=== PATIENT | male | born 1970 | race Caucasian/White ===

== ENCOUNTER 2024-10-09 12:43 | Outpatient (CLI) | payer OTHER, SELFPAY ==
--- NOTE | ~2024-10-09 | US_ITS ---
EXAMINATION: US renal BI DATE: 10/09/2024 13:19 INDICATION: Disorder of kidney TECHNIQUE: Multiple ultrasound grayscale images of the kidneys were obtained. COMPARISON: None. FINDINGS: The right kidney measures 10.3 x 5.0 x 4.7 cm. The left kidney measures 14.3 x 4.7 x 4.5 cm. The kidn eys demonstrate normal echogenicity. There is no hydronephrosis in either kidney. No stones identifi ed. The bladder is normal with bilateral ureteral jets visualized on color Doppler. IMPRESSION: 1. Normal kidneys without hydronephrosis. Reviewed, dictated and finalized at location A.
--- OUTSIDE RECORDS SUMMARY | 2024-10-09 14:07 | XMS_ITS | Data Portability ---
Author Organization [facility] RICKIESandeep Sacha Address [address] [place] [address] Care Team Providers Care Sem Manager Name Role Phone HATHAWAY TYREE Primary Care Provider [phone] Assessment Encounter Date Assessment Date Assessment LastModified by Organization Details LastModified Time 12/07/2022 12/07/2022 Pt is stable and doing well, remaining under care of insurance risk surveyor at [facility]. [email or web address] Not available 12/12/2022 14:04:43 08/17/2023 08/17/2023 Pt is stable. Workup will proceed as described below. [email or web address] Not available 08/21/2023 15:10:42 12/12/2023 12/12/2023 Pt is stable. [email or web address] Not available 12/17/2023 12:46:53 06/12/2024 06/12/2024 Treatment will proceed as below. [email or web address] Not available 06/14/2024 07:41:17 07/08/2024 07/08/2024 Open wound at right reed has healed well without signs of secondary infection. Not available 07/09/2024 22:28:33 Plan of Treatment Reminders Order Date Submit Date Provider Last Modified By Organization Details Last Modified Time Details Appointments None recorded. Lab HbA1c (hemoglob in A1c), blood 2023 024 [employer] [facility], [address] [place] [address], [address], 06:21:57 BNP (B-type natriuret ic peptide), serum or plasma 2023 024 [facility], [address] [facility], [address], [place], [address], 4 10:14:43 CMP, serum or plasma 2023 024 [facility], [address] [facility], [address], [place], [address], 4 06:21:56 CBC w/ auto diff 2023 024 [facility], [address] [facility], [address], [place], [address], 4 06:22:00 TSH, ultra-sen sitive, serum 2023 024 [facility], [facility], [address], [place], [address], 4 06:21:59 BNP (B-type natriuret ic peptide), serum or plasma 2023 024 [facility], [facility], [facility] [address], [place], [address], 4 15:13:10 PSA, total, serum or plasma 2023 024 [facility], [facility], [facility] [address], [place], [address], 4 06:22:37 CMP, serum or plasma 2023 024 [facility], [facility], [address], [place], [address], 4 20:11:04 CBC w/ auto diff 2023 024 [facility], [address] [facility], [address], [place], [address], 4 20:11:05 lipid panel, serum 2023 024 [facility], [facility], [facility] [address], [place], [address], 4 20:11:03 TSH, ultra-sen sitive, serum 2023 024 [facility], [address] [facility], [facility] [address], [place], [address], 4 06:22:37 HbA1c (hemoglob in A1c), blood 2022 023 [email or web address] In-Office Order, Internal Use Only DO Not Attach Compendium DO Not Attach Compendium, Do Not Delete/merge, [id number] 3 15:49:26 Referral None recorded. Procedures None recorded. Surgeries None recorded. Imaging US, gallbladd er 2023 024 [facility] (Radiology), [address] [facility] , [place], [address], 4 10:41:12 Medication Orders furosemid e 20 mg tablet 2023 024 [facility], [address] [place], [address], 4 22:25:43 potassium chloride ER 10 mEq tablet,ex tended release 2023 024 [facility], [address] [place], [address], 4 22:25:44 Bactrim DS 800 mg-160 mg tablet 2023 024 [facility], [address] [place], [address], 4 11:15:38 furosemid e 20 mg tablet 2023 024 [facility], [address] [place], [address], 4 16:35:59 potassium chloride ER 10 mEq tablet,ex tended release 2023 024 [facility], [address] [place], [address], 4 16:35:59 atorvasta tin 40 mg tablet 2023 024 [facility], [address] [place], [address], 4 16:35:59 amlodipin e 10 mg tablet 2023 024 [facility], [address] [place], [address], 4 16:36:02 chlorthal idone 25 mg tablet 2023 024 [facility], [address] [place], [address], 4 16:36:00 hydralazi ne 100 mg tablet 2023 024 [facility], [address] [place], [address], 4 16:36:00 labetalol 300 mg tablet 2023 024 [facility], [address] [place], [address], 4 16:36:00 isosorbid e dinitrate 20 mg tablet 2023 024 [facility], [address] [place], [address], 4 16:36:00 Chantix Continuin g Month Box 1 mg tablet 2023 024 [facility], [address] [place], [address], 4 16:35:55 Chantix Starting Month Box 0.5 mg (11)-1 mg (42) tablets in dose pack 2023 024 [email or web address], [address] [place], [address], 4 16:15:31 Chantix Continuin g Month Box 1 mg tablet 2023 024 [facility], [address] [place], [address], 4 17:43:39 furosemid e 20 mg tablet 2022 023 [facility], [address] [place] [address], [address], 3 15:40:14 potassium chloride ER 10 mEq tablet,ex tended release 2022 023 [facility], [address] [place] [address], [address], 3 15:40:22 Vitamin D2 1,250 mcg (50,000 unit) capsule 2022 023 [facility], [address] [place] [address], [address], 3 15:40:20 atorvasta tin 40 mg tablet 2022 023 [facility], [address] [place], [address], 3 15:40:21 amlodipin e 10 mg tablet 2022 023 [facility], [address] [place], [address], 3 15:40:10 chlorthal idone 25 mg tablet 2022 023 [facility], [address] [place] [address], [address], 15:40:12 hydralazi ne 100 mg tablet 2022 023 [facility], [address] [place], [address], 15:40:16 labetalol 300 mg tablet 2022 023 [facility], [address] [place], [address], 15:40:13 isosorbid e dinitrate 20 mg tablet 2022 023 [facility], [address] [place], [address], 15:40:14 Patient TargetsNo targets recorded. Patient Instructions Encounter Date Encounter Id Patient Instructions Last Modified By Organization Details Last Modified Time 08/17/2023 [id number] leg and ankle edema: care instructions [email or web address] Not available 08/17/2023 17:40:57 learning about high blood pressure [email or web address] Not available 08/17/2023 17:37:48 A healthy lifestyle: care instructions [email or web address] Not available 08/17/2023 17:37:48 12/12/2023 [id number] When You Want to Lose Weight: Care Instructions Not available 12/12/2023 16:28:11 learning about high blood pressure [email or web address] Not available 12/12/2023 16:28:11 07/08/2024 [id number] When You Want to Lose Weight: Care Instructions [email or web address] Not available 07/09/2024 22:29:07 Reason for Referral None Reported. Results Created Date Observation Date Name Description Value Unit Range Abnormal Flag Note LastModifiedBy Organization Detail LastModifiedTime 12/08/1912/07/2022 HbA1c (hemo globi n A1c), blood HbA1c 5.9 Not Available In-Office Order Internal Use Only DO Not Attach Compendium DO Not Attach Compendium, Do Not Delete/merge, [id number] 12/07/2022 15:00:44 08/22/19 24 08/22/2023 LIPID PANEL cholesterol, total 99 mg/dL 100-19 9 below low normal Not Available [facility] Department [address] [place] [address], [id number], 08/22/2023 20:11:03 08/22/19 24 08/22/2023 LIPID PANEL triglyceride s 122 mg/dL 0-149 Not Available [facility] Department [address] [place] [address], [address], 08/22/2023 20:11:03 08/22/19 24 08/22/2023 LIPID PANEL HDL cholesterol 30 mg/dL 40-999 below low normal Not Available [facility] Department [address] [place] [address], [address], 08/22/2023 20:11:03 08/22/19 24 08/22/2023 LIPID PANEL VLDL cholesterol brisa 24 mg/dL 5-40 Not Available [facility] Department [address] [place] [address], [address], 08/22/2023 20:11:03 08/22/19 24 08/22/2023 LIPID PANEL LDL chol calc (nih) 62 mg/dL 0-99 Not Available [facility] Department [address] [place], [address], 08/22/2023 20:11:03 08/22/19 24 08/22/2023 COMP. METAB OLIC PANEL (14) glucose 121 mg/dL 70-99 above high normal Not Available [facility] Department [address] [place], [address], 08/22/2023 20:11:04 08/22/19 24 08/22/2023 COMP. METAB OLIC PANEL (14) BUN 15 mg/dL 6-24 Not Available [facility] Department [address] [place], [address], 08/22/2023 20:11:04 08/22/19 24 08/22/2023 COMP. METAB OLIC PANEL (14) creatinine 1.37 mg/dL 0.76-1 .27 above high normal Not Available [facility] Department [address] [place] [address], [address], 08/22/2023 20:11:04 08/22/19 24 08/22/2023 COMP. METAB OLIC PANEL (14) eGFR 62 >=60 Units for eGFR value s are mL/mi n/1.7 3 The eGFR Calcu latio n has not been valid ated for patie nts under the age of 18. If test resul ts are displ ayed for a patie nt under the age of 18, disre diamond that value . Not Available [facility] Department [address] [place] [address], [address], 08/22/2023 20:11:04 08/22/19 24 08/22/2023 COMP. METAB OLIC PANEL (14) BUN/creatini ne ratio 11 9-20 Not Available [facility] Department [address] [place] [address], [address], 08/22/2023 20:11:04 08/22/19 24 08/22/2023 COMP. METAB OLIC PANEL (14) sodium 141 mmol/ L 134-14 4 Not Available [facility] Department [address] [place] [address], [address], 08/22/2023 20:11:04 08/22/19 24 08/22/2023 COMP. METAB OLIC PANEL (14) potassium 3.8 mmol/ L 3.5-5. 2 Not Available [facility] Department [address] [place] [address], [address], 08/22/2023 20:11:04 08/22/19 24 08/22/2023 COMP. METAB OLIC PANEL (14) chloride 99 mmol/ L 96-106 Not Available [facility] Department [address] [place] [address], [address], 08/22/2023 20:11:04 08/22/19 24 08/22/2023 COMP. METAB OLIC PANEL (14) carbon dioxide, total 28 mmol/ L Not Available [facility] Department [address] [place], [address], 08/22/2023 20:11:04 08/22/19 24 08/22/2023 COMP. METAB OLIC PANEL (14) calcium 10.0 mg/dL 8.7-10 .2 Not Available [facility] Department [address] [place], [address], 08/22/2023 20:11:04 08/22/19 24 08/22/2023 COMP. METAB OLIC PANEL (14) protein, total 6.2 g/dL 6.0-8. 5 Not Available [facility] Department [address] [place], [address], 08/22/2023 20:11:04 08/22/19 24 08/22/2023 COMP. METAB OLIC PANEL (14) albumin 4.2 g/dL 3.8-4. 9 Not Available [facility] Department [address] [place], [address], 08/22/2023 20:11:04 08/22/19 24 08/22/2023 COMP. METAB OLIC PANEL (14) globulin, total 2.0 g/dL 1.5-4. 5 Not Available [facility] Department [address] [place], [address], 08/22/2023 20:11:04 08/22/19 24 08/22/2023 COMP. METAB OLIC PANEL (14) A/G ratio 2.0 1.2-2. 2 Not Available [facility] Department [address] [place], [address], 08/22/2023 20:11:04 08/22/19 24 08/22/2023 COMP. METAB OLIC PANEL (14) bilirubin, total 0.7 mg/dL 0.0-1. 2 Not Available [facility] Department [address] [place], [address], 08/22/2023 20:11:04 08/22/19 24 08/22/2023 COMP. METAB OLIC PANEL (14) alkaline phosphatase 98 IU/L 44-121 Not Available [facility] Department [address] [place], [address], 08/22/2023 20:11:04 08/22/19 24 08/22/2023 COMP. METAB OLIC PANEL (14) AST (SGOT) 19 IU/L 0-40 Not Available [facility] Department [address] [place], [address], 08/22/2023 20:11:04 08/22/19 24 08/22/2023 COMP. METAB OLIC PANEL (14) ALT (SGPT) 23 IU/L 0-44 Not Available [facility] Department [address] [place], [address], 08/22/2023 20:11:04 08/22/19 24 08/22/2023 CBC WITH DIFFE RENTI AL/PL ATELE T WBC 7.3 x10e3 /uL 3.4-10 .8 Not Available [facility] Department [address] [place], [address], 08/22/2023 20:11:05 08/22/19 24 08/22/2023 CBC WITH DIFFE RENTI AL/PL ATELE T RBC 5.26 x10e6 /uL 4.14-5 .80 Not Available [facility] Department [address] [place], [address], 08/22/2023 20:11:05 08/22/19 24 08/22/2023 CBC WITH DIFFE RENTI AL/PL ATELE T hemoglobin 15.2 g/dL 13.0-1 7.7 Not Available [facility] Department [address] [place], [address], 08/22/2023 20:11:05 08/22/19 24 08/22/2023 CBC WITH DIFFE RENTI AL/PL ATELE T hematocrit 45.6 % 37.5-5 1.0 Not Available [facility] Department [address] [place], [address], 08/22/2023 20:11:05 08/22/19 24 08/22/2023 CBC WITH DIFFE RENTI AL/PL ATELE T MCV 87 fL 79-97 Not Available [facility] Department [address] [place], [address], 08/22/2023 20:11:05 08/22/19 24 08/22/2023 CBC WITH DIFFE RENTI AL/PL ATELE T MCH 28.9 pg 26.6-3 3.0 Not Available [facility] Department [address] [place] [address], [address], 08/22/2023 20:11:05 08/22/19 24 08/22/2023 CBC WITH DIFFE RENTI AL/PL ATELE T MCHC 33.3 g/dL 31.5-3 5.7 Not Available [facility] Department [address] [place], [address], 08/22/2023 20:11:05 08/22/19 24 08/22/2023 CBC WITH DIFFE RENTI AL/PL ATELE T RDW 14.4 % 11.5-1 4.5 Not Available [facility] Department [address] [place], [address], 08/22/2023 20:11:05 08/22/19 24 08/22/2023 CBC WITH DIFFE RENTI AL/PL ATELE T platelets 167 x10e3 /uL 150-45 0 Not Available [facility] Department [address] [place], [address], 08/22/2023 20:11:05 08/22/19 24 08/22/2023 CBC WITH DIFFE RENTI AL/PL ATELE T neutrophils 70 % notest b. Not Available [facility] Department [address] [place], [address], 08/22/2023 20:11:05 08/22/19 24 08/22/2023 CBC WITH DIFFE RENTI AL/PL ATELE T lymphs 21 % notest b. Not Available [facility] Department [address] [place], [address], 08/22/2023 20:11:05 08/22/19 24 08/22/2023 CBC WITH DIFFE RENTI AL/PL ATELE T monocytes 5 % notest b. Not Available [facility] Department [address] [place], [address], 08/22/2023 20:11:05 08/22/19 24 08/22/2023 CBC WITH DIFFE RENTI AL/PL ATELE T eos 3 % notest b. Not Available [facility] Department [address] [place], [address], 08/22/2023 20:11:05 08/22/19 24 08/22/2023 CBC WITH DIFFE RENTI AL/PL ATELE T basos 1 % notest b. Not Available [facility] Department [address] [place], [address], 08/22/2023 20:11:05 08/22/19 24 08/22/2023 CBC WITH DIFFE RENTI AL/PL ATELE T neutrophils (absolute) 5.1 x10e3 /uL 1.4-7. 0 Not Available [facility] Department [address] [place], [address], 08/22/2023 20:11:05 08/22/19 24 08/22/2023 CBC WITH DIFFE RENTI AL/PL ATELE T lymphs (absolute) 1.5 x10e3 /uL 0.7-3. 1 Not Available [facility] Department [address] [place], [address], 08/22/2023 20:11:05 08/22/19 24 08/22/2023 CBC WITH DIFFE RENTI AL/PL ATELE T monocytes(ab solute) 0.4 x10e3 /uL 0.1-0. 9 Not Available [facility] Department [address] [place], [address], 08/22/2023 20:11:05 08/22/19 24 08/22/2023 CBC WITH DIFFE RENTI AL/PL ATELE T eos (absolute) 0.2 x10e3 /uL 0.0-0. 4 Not Available [facility] Department [address] [place], [address], 08/22/2023 20:11:05 08/22/19 24 08/22/2023 CBC WITH DIFFE RENTI AL/PL ATELE T baso (absolute) 0.1 x10e3 /uL 0.0-0. 2 Not Available [facility] Department [address] [place], [address], 08/22/2023 20:11:05 08/22/19 24 08/22/2023 CBC WITH DIFFE RENTI AL/PL ATELE T immature granulocytes 0.1 % notest b. Not Available [facility] Department [address] [place], [address], 08/22/2023 20:11:05 08/22/19 24 08/22/2023 CBC WITH DIFFE RENTI AL/PL ATELE T immature grans (abs) 0.0 x10e3 /uL 0.0-0. 1 Not Available [facility] Department [address] [place], [address], 08/22/2023 20:11:05 08/22/19 24 08/22/2023 CBC WITH DIFFE RENTI AL/PL ATELE T NRBC 0 % 0-0 Not Available [facility] Department [address] [place], [address], 08/22/2023 20:11:05 08/22/19 24 08/23/2023 TSH TSH 3.620 uIU/m L 0.450- 4.500 Not Available [facility] ([facility]) [address] [facility], [place], [address], 08/23/2023 06:22:37 08/22/19 24 08/23/2023 PROST ATE-S PECIF IC AG prostate specific Ag 1.1 NG/mL 0.0-4. 0 [facility] ECLIA metho dolog y. Accor ding to the Ameri can Urolo gical Assoc iatio n, Serum PSA shoul d decre ase and remai n at undet ectab le level s after radic al prost atect ronen. The AUA defin es bioch emica l recur rence as an initi al PSA value 0.2 ng/mL or great er follo wed by a subse quent confi rmato ry PSA value 0.2 ng/mL or great er. Value s obtai chay with diffe rent assay metho ds or kits canno t be used inter wolf eably . Resul ts canno t be inter prete d as absol nikolai evide nce of the prese nce or absen ce of nehemiah pearson se. Not Available [facility] ([facility]) [address] [facility], [place], [address], 08/23/2023 06:22:37 08/22/19 24 08/23/2023 B-TYP E NATRI URETI C PEPTI DE B-type natriuretic peptide 150.9 pg/mL 0.0-10 0.0 above high normal Sieme ns [facility] metho dolog y Not Available [facility] ([facility]) [address] [facility], [place], [address], 08/23/2023 15:13:10 06/12/20 24 06/13/2024 COMP. METAB OLIC PANEL (14) glucose 139 mg/dL 70-99 above high normal Not Available [facility] ([facility]) [address] [facility], [place], [address], 06/13/2024 06:21:56 06/12/20 24 06/13/2024 COMP. METAB OLIC PANEL (14) BUN 14 mg/dL 6-24 Not Available [facility] ([facility]) [address] [facility], [place], [address], 06/13/2024 06:21:56 06/12/20 24 06/13/2024 COMP. METAB OLIC PANEL (14) creatinine 1.29 mg/dL 0.76-1 .27 above high normal Not Available [facility] ([facility]) [address] [facility], [place], [address], 06/13/2024 06:21:56 06/12/20 24 06/13/2024 COMP. METAB OLIC PANEL (14) eGFR 66 mL/mi n/1.7 3 >59 Not Available [facility] ([facility]) [address] [place], [address], 06/13/2024 06:21:56 06/12/20 24 06/13/2024 COMP. METAB OLIC PANEL (14) BUN/creatini ne ratio 11 -20 Not Available [facility] ([facility]) [address] [place], [address], 06/13/2024 06:21:56 06/12/20 24 06/13/2024 COMP. METAB OLIC PANEL (14) sodium 138 mmol/ L 134-14 4 Not Available [facility] ([facility]) [address] [place], [address], 06/13/2024 06:21:56 06/12/20 24 06/13/2024 COMP. METAB OLIC PANEL (14) potassium 3.8 mmol/ L 3.5-5. 2 Not Available [facility] ([facility]) [address] [place], [address], 06/13/2024 06:21:56 06/12/20 24 06/13/2024 COMP. METAB OLIC PANEL (14) chloride 99 mmol/ L 96-106 Not Available [facility] ([facility]) [address] [facility] [place], [address], 06/13/2024 06:21:56 06/12/20 24 06/13/2024 COMP. METAB OLIC PANEL (14) carbon dioxide, total 23 mmol/ L 20-29 Not Available [facility] ([facility]) [address] [facility] [place], [address], 06/13/2024 06:21:56 06/12/20 24 06/13/2024 COMP. METAB OLIC PANEL (14) calcium 9.7 mg/dL 8.7-10 .2 Not Available [facility] ([facility]) [address] [facility] [place], [address], 06/13/2024 06:21:56 06/12/20 24 06/13/2024 COMP. METAB OLIC PANEL (14) protein, total 6.1 g/dL 6.0-8. 5 Not Available [facility] ([facility]) [address] [facility] [place], [address], 06/13/2024 06:21:56 06/12/20 24 06/13/2024 COMP. METAB OLIC PANEL (14) albumin 4.0 g/dL 3.8-4. 9 Not Available [facility] ([facility]) [address] [facility] [place], [address], 06/13/2024 06:21:56 06/12/20 24 06/13/2024 COMP. METAB OLIC PANEL (14) globulin, total 2.1 g/dL 1.5-4. 5 Not Available [facility] ([facility]) [address] [facility] [place], [address], 06/13/2024 06:21:56 06/12/20 24 06/13/2024 COMP. METAB OLIC PANEL (14) bilirubin, total 0.7 mg/dL 0.0-1. 2 Not Available [facility] ([facility]) [address] [place], [address], 06/13/2024 06:21:56 06/12/20 24 06/13/2024 COMP. METAB OLIC PANEL (14) alkaline phosphatase 106 IU/L 44-121 Not Available [facility] ([facility]) [address] [place], [address], 06/13/2024 06:21:56 06/12/20 24 06/13/2024 COMP. METAB OLIC PANEL (14) AST (SGOT) 16 IU/L 0-40 Not Available [facility] ([facility]) [address] [place], [address], 06/13/2024 06:21:56 06/12/20 24 06/13/2024 COMP. METAB OLIC PANEL (14) ALT (SGPT) 21 IU/L 0-44 Not Available [facility] ([facility]) [address] [place], [address], 06/13/2024 06:21:56 06/12/20 24 06/12/2024 HEMOG LOBIN A1C hemoglobin A1C 6.2 % 4.8-5. 6 above high normal Predi abete s: 5.7 - 6.4 Diabe eitan: >6.4 Glyce baltazar contr ol for adult s with diabe eitan: <7.0 Not Available [facility] ([facility]) [address] [place], [address], 06/13/2024 06:21:57 06/12/20 24 06/13/2024 TSH TSH 4.420 uIU/m L 0.450- 4.500 Not Available [facility] ([facility]) [address] [place], [address], 06/13/2024 06:21:58 06/12/20 24 06/12/2024 CBC WITH DIFFE RENTI AL/PL ATELE T WBC 8.2 x10e3 /uL 3.4-10 .8 Eff ectiv e Decem [place]y 2023 [place] [id number] 5 WBC will be made* * non-o rdera ble as a stand -carmen e order code. Not Available [facility] ([facility]) [address] [place], [address], 06/13/2024 06:22:00 06/12/20 24 06/12/2024 CBC WITH DIFFE RENTI AL/PL ATELE T RBC 5.05 x10e6 /uL 4.14-5 .80 Not Available [facility] ([facility]) [address] [place], [address], 06/13/2024 06:22:00 06/12/20 24 06/12/2024 CBC WITH DIFFE RENTI AL/PL ATELE T hemoglobin 14.6 g/dL 13.0-1 7.7 Not Available [facility] ([facility]) [address] [place], [address], 06/13/2024 06:22:00 06/12/20 24 06/12/2024 CBC WITH DIFFE RENTI AL/PL ATELE T hematocrit 44.3 % 37.5-5 1.0 Not Available [facility] ([facility]) [address] [place], [address], 06/13/2024 06:22:00 06/12/20 24 06/12/2024 CBC WITH DIFFE RENTI AL/PL ATELE T MCV 88 fL 79-97 Not Available [facility] ([facility]) [address] [place], [address], 06/13/2024 06:22:00 06/12/20 24 06/12/2024 CBC WITH DIFFE RENTI AL/PL ATELE T MCH 28.9 pg 26.6-3 3.0 Not Available [facility] ([facility]) [address] [place], [address], 06/13/2024 06:22:00 06/12/20 24 06/12/2024 CBC WITH DIFFE RENTI AL/PL ATELE T MCHC 33.0 g/dL 31.5-3 5.7 Not Available [facility] ([facility]) [address] [facility], [place], [address], 06/13/2024 06:22:00 06/12/20 24 06/12/2024 CBC WITH DIFFE RENTI AL/PL ATELE T RDW 14.3 % 11.6-1 5.4 Not Available [facility] ([facility]) [address] [facility], [place], [address], 06/13/2024 06:22:00 06/12/20 24 06/12/2024 CBC WITH DIFFE RENTI AL/PL ATELE T platelets 179 x10e3 /uL 150-45 0 Not Available [facility] ([facility]) [address] [facility], [place], [address], 06/13/2024 06:22:00 06/12/20 24 06/12/2024 CBC WITH DIFFE RENTI AL/PL ATELE T neutrophils 74 % notest ab. Not Available [facility] ([facility]) [address] [facility], [place], [address], 06/13/2024 06:22:00 06/12/20 24 06/12/2024 CBC WITH DIFFE RENTI AL/PL ATELE T lymphs 15 % notest ab. Not Available [facility] ([facility]) [address] [facility], [place], [address], 06/13/2024 06:22:00 06/12/20 24 06/12/2024 CBC WITH DIFFE RENTI AL/PL ATELE T monocytes 7 % notest ab. Not Available [facility] ([facility]) [address] [facility], [place], [address], 06/13/2024 06:22:00 06/12/20 24 06/12/2024 CBC WITH DIFFE RENTI AL/PL ATELE T eos 3 % notest ab. Not Available [facility] ([facility]) [address] [place], [address], 06/13/2024 06:22:00 06/12/20 24 06/12/2024 CBC WITH DIFFE RENTI AL/PL ATELE T basos 1 % notest ab. Not Available [facility] ([facility]) [address] [place], [address], 06/13/2024 06:22:00 06/12/20 24 06/12/2024 CBC WITH DIFFE RENTI AL/PL ATELE T neutrophils (absolute) 6.1 x10e3 /uL 1.4-7. 0 Not Available [facility] ([facility]) [address] [place], [address], 06/13/2024 06:22:00 06/12/20 24 06/12/2024 CBC WITH DIFFE RENTI AL/PL ATELE T lymphs (absolute) 1.3 x10e3 /uL 0.7-3. 1 Not Available [facility] ([facility]) [address] [place], [address], 06/13/2024 06:22:00 06/12/20 24 06/12/2024 CBC WITH DIFFE RENTI AL/PL ATELE T monocytes(ab solute) 0.5 x10e3 /uL 0.1-0. 9 Not Available [facility] ([facility]) [address] [place], [address], 06/13/2024 06:22:00 06/12/20 24 06/12/2024 CBC WITH DIFFE RENTI AL/PL ATELE T eos (absolute) 0.3 x10e3 /uL 0.0-0. 4 Not Available [facility] ([facility]) [address] [place], [address], 06/13/2024 06:22:00 06/12/20 24 06/12/2024 CBC WITH DIFFE RENTI AL/PL ATELE T baso (absolute) 0.1 x10e3 /uL 0.0-0. 2 Not Available [facility] ([facility]) [address] [facility], [place], [address], 06/13/2024 06:22:00 06/12/20 24 06/12/2024 CBC WITH DIFFE RENTI AL/PL ATELE T immature granulocytes 0 % notest ab. Not Available [facility] ([facility]) [address] [facility], [place], [address], 06/13/2024 06:22:00 06/12/20 24 06/12/2024 CBC WITH DIFFE RENTI AL/PL ATELE T immature grans (abs) 0.0 x10e3 /uL 0.0-0. 1 Not Available [facility] ([facility]) [address] [facility], [place], [address], 06/13/2024 06:22:00 06/12/20 24 06/13/2024 B-TYP E NATRI URETI C PEPTI DE B-type natriuretic peptide 182.7 pg/mL 0.0-10 0.0 above high normal Sieme ns ADVIA Cent[facility] XP metho dolog y Not Available [facility] ([facility]) [address] [facility], [place], [address], 06/13/2024 10:14:43 08/01/19 24 07/31/2023 CT, chest + abdom en + pelvi s, w/o contr ast No observ ation record ed. guzman [facility], [place], [address], 08/03/2023 12:55:03 09/25/19 24 09/22/2023 , jerman linder No observ ation record ed. [email or web address] [address] , [place], [address], 10/09/2023 15:26:11 09/25/19 25 09/23/2024 CT, abdom en + pelvi s, w/o contr ast No observ ation record ed. [email or web address] Not Available 2024 12:34:53 Result Notes None recorded. Problems Name Problem SNOMED Code Status Onset Date Resolution Date Notes Provider Name and Address Organization Details Recorded Time Essential hypertension 21022504 Active Not Available [facility] 4 14:25:14 Serum creatinine above reference range 355601258 Active Not Available [facility] 4 14:25:13 Smoker 73819398 Active Not Available [facility] 4 14:25:14 Morbid obesity 035538771 Active Not Available [facility] 4 14:25:14 Dissection of aorta 759330326 Active Not Available [facility] 4 14:25:14 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 Please review these documents and add these problems to the patient's chart manually as needed. Problem Notes None recorded. Procedures Surgical History None recorded. Imaging Results Imaging Date Name Status LastModified by Organiz ation Details LastModified Time 07/31/2023 CT, chest + abdomen + pelvis, w/o contrast completed [email or web address] [facility], [place], [address], 08/03/2023 12:55:03 09/22/2023 US, gallbladder completed [email or web address] Forrest [address] , [place], [address], 10/09/2023 15:26:11 09/23/2024 CT, abdomen + pelvis, w/o contrast completed Information not available 09/24/2024 12:34:53 Procedure Notes None recorded. Medical Equipment None Reported. Allergies No known drug allergies Medications Name Sig Start Date Stop Date Status Note LastModified by Organization Details LastModified Time cyclobenz aprine 10 mg tablet TAKE 1 TABLET BY MOUTH ONCE DAILY IN THE EVENING* (*NEEDS TO SCHEDULE FOLLOW UP APPOINTM ENT active Not Available Not Available No t Available amoxicill in 500 mg capsule 02/16 completed Not Available Not Available Not Available atorvasta tin 40 mg tablet TAKE 1 TABLET BY MOUTH ONCE DAILY AT BEDTIME active Not Available Not Available No t Available hydrocodo ne 5 mg-acetam inophen 325 mg tablet Take 1 tablet every 6 hours by oral route as needed. 09/19 completed Not Available Not Available Not Available senna 8.6 mg tablet Take 2 tablets twice a day by oral route. 08/24 completed Not Available Not Available Not Available penicilli n V potassium 500 mg tablet 09/19 completed Not Available Not Available Not Available potassium chloride ER 10 mEq tablet,ex tended release Take 3 tablets twice a day by oral route for 30 days. active Not Available Not Available No t Available chlorthal idone 25 mg tablet TAKE 1 TABLET BY MOUTH ONCE DAILY active Not Available Not Available No t Available amlodipin e 5 mg tablet TAKE 1 TABLET BY MOUTH ONCE DAILY ALONG WITH 10MG TABLET FOR A TOTAL DOSE OF 15MG 05/21 completed Not Available Not Available Not Available sulfameth oxazole 800 mg-trimet hoprim 160 mg tablet Take 1 tablet twice a day by oral route for 10 days. 07/08 completed Not Available Not Available Not Available spironola ctone 25 mg tablet Take 1 tablet every day by oral route. 08/17 completed Not Available Not Available Not Available amoxicill in 500 mg tablet Take 1 tablet 3 times a day by oral route. 02/16 completed Not Available Not Available Not Available amlodipin e 10 mg tablet TAKE 1 TABLET BY MOUTH ONCE DAILY active Not Available Not Available No t Available benzonata te 100 mg capsule TAKE 1 CAPSULE BY MOUTH THREE TIMES DAILY NEEDED FOR COUGH 08/16 completed Not Available Not Available Not Available hydralazi ne 100 mg tablet TAKE 1 TABLET BY MOUTH THREE TIMES DAILY active Not Available Not Available No t Available isosorbid e dinitrate 20 mg tablet TAKE 1 TABLET BY MOUTH THREE TIMES DAILY active Not Available Not Available No t Available furosemid e 20 mg tablet Take 3 tablets twice a day by oral route for 30 days. active Not Available Not Available No t Available ergocalci ferol (vitamin D2) 1,250 mcg (50,000 unit) capsule TAKE 1 CAPSULE BY MOUTH ONCE A WEEK active Not Available Not Available No t Available labetalol 300 mg tablet TAKE 2 TABLETS BY MOUTH THREE TIMES DAILY FOR 90 DAYS active Not Available Not Available No t Available amoxicill in 875 mg-potass ium clavulana te 125 mg tablet 11/20 completed Not Available Not Available Not Available potassium chloride ER 10 mEq tablet,ex tended release(p art/cryst ) Take 1 tablet by mouth 4 times daily 08/16 completed duplicat e Not Available Not Available Not Available docusate sodium 2 cap twice a day 09/19 completed Not Available Not Available Not Available amlodipin e 5mg take 3 tablets daily active Not Available Not Available No t Available varenicli ne tartrate 1 mg tablet TAKE 1 TABLET BY MOUTH TWICE DAILY active Not Available Not Available No t Available varenicli ne tartrate 0.5 mg (11)-1 mg (42) tablets in a dose pack TAKE BY MOUTH DIRECTED ON INSIDE OF PACKAGE 12/11 completed Not Available Not Available Not Available Vitals Date Recorded Body height Body mass index (BMI) Body weight Oxygen saturation Oxygen saturation in Arterial blood by Pulse oximetry Heart rate Respiratory rate Body temperature Provider Name and Address Organization Details Last Updated DateTime 3 194.31 cm 49.3 kg/m2 951442. 67 g 95 % 95 % 84 /min 16 /min 98.7 [degF] Nicole Baker MA [facility] 3 14:55:39 Date Recorded Systolic blood pressure Diastolic blood pressure Provider Name and Address Organization Details Last Updated DateTime 12/07/2022 139 mm[Hg] 74 mm[Hg] Tyree Hathaway MD Attn: Accounting[address] [place], [address], [facility] 12/07/2022 15:25:40 Date Recorded Body height Body mass index (BMI) Body weight Respiratory rate Body temperature Oxygen saturation Oxygen saturation in Arterial blood by Pulse oximetry Heart rate Systolic blood pressure Diastolic blood pressure Systolic blood pressure Diastolic blood pressure Provider Name and Address Organization Details Last Updated DateTime 4 194.31 cm 49.9 kg/m2 311710. 83 g 16 /min 98.5 [degF] 95 % 95 % 73 /min 164 mm[Hg] 78 mm[Hg] 130 mm[Hg] 80 mm[Hg] Shaina Melgar MA [facility] 4 17:02:02 Date Recorded Body height Body mass index (BMI) Body weight Oxygen saturation Oxygen saturation in Arterial blood by Pulse oximetry Heart rate Respiratory rate Body temperature Systolic blood pressure Diastolic blood pressure Provider Name and Address Organization Details Last Updated DateTime 4 194.31 cm 49.6 kg/m2 260635. 35 g 97 % 97 % 96 /min 16 /min 96.9 [degF] 145 mm[Hg] 77 mm[Hg] Nicole Baker MA [facility] 4 16:21:55 Date Recorded Body height Body mass index (BMI) Body weight Oxygen saturation Oxygen saturation in Arterial blood by Pulse oximetry Heart rate Respiratory rate Body temperature Systolic blood pressure Diastolic blood pressure Provider Name and Address Organization Details Last Updated DateTime 4 194.31 cm 52.3 kg/m2 183876. 78 g 96 % 96 % 96 /min 16 /min 97.1 [degF] 127 mm[Hg] 73 mm[Hg] Nicole Baker MA [facility] 4 10:11:34 Date Recorded Body height Body mass index (BMI) Body weight Respiratory rate Body temperature Oxygen saturation Oxygen saturation in Arterial blood by Pulse oximetry Heart rate Provider Name and Address Organization Details Last Updated DateTime 4 194.31 cm 52.3 kg/m2 909862. 43 g 16 /min 98.2 [degF] 98 % 98 % 74 /min Shaina Melgar MA [facility] 4 11:13:30 Date Recorded Systolic blood pressure Diastolic blood pressure Provider Name and Address Organization Details Last Updated DateTime 07/08/2024 139 mm[Hg] 82 mm[Hg] Tyree Hathaway MD Attn: Accounting[address] [facility], [place], [address], [facility] 07/08/2024 11:56:30 Social History Question Answer Notes LastModified by Organization Details LastModified Time Tobacco Smoking Status Current Every Day Smoker Lyndsay Frazier [facility], [facility] 03/23/2016 12:14:55 Do You Have An Advance Directive? No Information not available 11/19/2020 What Is Your Level Of Alcohol Consumption? Occasional [email or web address] Information not available 03/23/2016 How Many Years Have You Consumed Alcohol? 30 Information not available 11/19/2020 Are You Blind Or Do You Have Difficulty Seeing? No Information not available 11/19/2020 What Is Your Level Of Caffeine Consumption? Moderate 1 To 1.5 Cups Of Coffee In The Morning And A Soda Once In A While Information not available 11/19/2020 In The 14 Days Before Symptom Onset, Have You Had Close Contact With A Laboratory-confi rmed COVID-19 While That Case Was Ill? No Information not available 11/19/2020 In The 14 Days Before Symptom Onset, Have You Had Close Contact With A Person Who Is Under Investigation For COVID-19 While That Person Was Ill? No Information not available 11/19/2020 Have You Been To An Area Known To Be High Risk For COVID-19? No Information not available 11/19/2020 Are You Currently Employed? No Unemployeed Information not available 11/19/2020 Are You Deaf Or Do You Have Serious Difficulty Hearing? No Information not available 11/19/2020 What Type Of Diet Are You Following? REGULAR Tries To Watch Carbs, Fats And Low Salt Information not available 11/19/2020 Do You Or Have You Ever Used E-cigarettes Or Vape? Never Used Electronic Cigarettes Information not available 11/21/2019 Are There Any Guns Present In Your Home? No Information not available 11/19/2020 Do You Have A High School Diploma Or Higher Education? Yes Information not available 11/19/2020 Do You Sometimes Have To Miss Your Medical Appointments Due To Difficult Getting Transportation? No Information not available 11/19/2020 Do You Feel Unfairly Treated Due To Things Such As Race, Age, Gender, Disability Or Some Other Reason? No Information not available 11/19/2020 Do You Feel Physically And Emotionally Safe While Living At Home? Yes Information not available 11/19/2020 Do You Feel Physically And Emotionally Safe In Your Neighborhood Or Other Public Places? Yes Information not available 11/19/2020 What Was The Date Of Your Most Recent Tobacco Screening? 07/08/2024 Information not available 07/08/2024 How Many Children Do You Have? 2 Information not available 11/19/2020 What Is Your Current Pack Years? 30ormorepacky ears Information not available 11/19/2020 Do You Use Protection During Sex? No Information not available 11/19/2020 What Is Your Relationship Status? Information not available 11/19/2020 Do You Use Your Seat Belt Or Car Seat Routinely? Yes Information not available 11/19/2020 Are You Sexually Active? Yes Information not available 11/19/2020 Do You Have Smoke And Carbon Monoxide Detectors In Your Home? Yes Information not available 11/19/2020 At What Age Did You Start Smoking Tobacco? 11 Information not available 11/19/2020 Are You Passively Exposed To Smoke? Yes Information not available 11/19/2020 Do You Or Have You Ever Used Smokeless Tobacco? Never Used Smokeless Tobacco Information not available 11/21/2019 How Much Tobacco Do You Smoke? 0.25 PPD About 1/2-3/4 Pack A Day Information not available 12/12/2023 Do You Feel Stressed (tense, Restless, Nervous, Or Anxious, Or Unable To Sleep At Night)? [id number] Information not available 11/19/2020 Do You Use Any Illicit Or Recreational Drugs? No Information not available 11/19/2020 Do You Use Sunscreen Routinely? Yes Information not available 11/19/2020 Has Tobacco Cessation Counseling Been Provided? Yes Information not available 11/19/2020 On What Date Was Tobacco Cessation Counseling Provided? 07/08/2024 Information not available 07/08/2024 How Many Years Have You Smoked Tobacco? 42 Information not available 12/12/2023 Do You Or Have You Ever Used Any Other Forms Of Tobacco Or Nicotine? Yes Information not available 08/16/2022 Sex: Male Functional Status Question Answer Note LastModified by Organizat ion Details LastModified Time Are you able to care for yourself? Yes Information not available 11/19/2020 What is your exercise level? Moderate 3 times a week- free weight Information not available 11/19/2020 Mental Status None recorded. Family History Relationship Description Onset Age of this Age Resolved Age Notes LastModified by Organization Details LastModified Time Mother Hypertensive disorder [email or web address] Not available 12:14:56 Mother Myocardial infarction [email or web address] Not available 12:14:56 Father Hypertensive disorder [email or web address] Not available 12:14:56 Father Myocardial infarction [email or web address] Not available 12:14:56 Sister Hypertensive disorder [email or web address] Not available 12:14:56 Daughter Audra-Chapis son-White pattern [email or web address] Not available 11/19 10:40:28 Notes:No changes reported , 08/16/22, 12/07/22, 08/17/23, 12/12/23, 06/12/24, 07/08/24 Medical History Condition Response Coronary Artery Disease N Other N High Blood Pressure Y Atrial Fibrillation N Thyroid Problems N Kidney or Bladder Problems N GI Problems N Depression N COPD N Blood Clots N Skin Problems N Eating Disorder N Anemia N Heart Attack (OR) N Anxiety Disorder N Diabetes N Muscle, Joint, or Bone Problems N Seizures/Epilepsy N Acid Reflux (GERD) N Cancer N Stroke N Asthma N Allergies N ADHD N Substance Abuse N High Cholesterol N Hepatitis N Liver Disease N Schizophrenia N Headaches N Heart Failure N Osteoporosis N Immunizations Vaccine Type Date Status Note Provider Name and Address Organization Details Recorded Time Influenza, split virus, quadrivalent, preservative 016 completed Not Available [facility] 08/10/2019 02:51:04 Influenza, split virus, trivalent, PF 024 cancelled patient objection Tyree Hathaway MD Attn: Accounting[address] [place], [address], [facility] 06/14/2024 07:35:58 Pneumococcal conjugate PCV20, polysaccharide NHH064 conjugate, adjuvant, PF 024 cancelled product out of stock Tyree Hathaway MD Attn: Accounting[address] [place], [address], [facility] 06/14/2024 07:35:58 Past Encounters Encounter ID Performer Location Encounter Start Date Encounter Closed Date Diagnosis/Indication Diagnosis SNOMED-CT Code Diagnosis ICD10 Code Diagnosis Note [id number] Tyree Hathaway MD [facility] [address] [place] [address] 03/23/2016 12:04:21 03/23/2016 21:19:05 Essential hypertension 58926799 I10 Serum crea tinine above reference range 245033788 R79.89 Smoker 60042273 F17.200 Morbid obesity 982315523 E66.01 Dissection of aorta 3085 64746 I71.00 [id number] Tyree Hathaway MD [facility] [address] [place] [address] 03/31/2016 14:47:43 04/01/2016 13:00:43 Essential hypertension 08499489 I10 Nausea 377763054 R11.0 Morbid obesity 994373363 E66.01 Insomnia 905751385 G47.0 0 Abnormal m yung sexual function 5850791 N53.9 most likely due to recent illness and perhaps to some of his medication s [id number] MD Garrett Navarro [facility] [address] [place] [address] 04/20/2016 11:29:14 04/21/2016 14:23:51 Essential hypertension 48708370 I10 Needs infl uenza immunization 855982138 Z23 [id number] MD Garrett Navarro [facility] [address] [place] [address] 08/17/2016 14:38:10 08/19/2016 09:35:47 Edema 246049992 R60.9 Type II di ssection of thoracic aorta 546094202 I71.01 [id number] MD Garrett Navarro [facility] [address] [place] [address] 08/24/2017 15:16:29 08/28/2017 09:55:46 Essential hypertension 87030886 I10 atorvastat in Obesity 307927254 E66.9 Edema 591623280 R60.9 Smoker 06700732 F17.479 [id number] MD Garrett Navarro [facility] [address] [place] [address] 09/21/2017 15:51:22 09/22/2017 16:17:24 Dental abscess 296938054 K04.7 Pt is already on antibx. [id number] MD [place] Navarro [address] [facility] [place] [address] 09/19/2018 16:39:35 09/20/2018 11:44:33 Essential hypertension 68769256 I10 Morbid obesity 123357188 E66.01 Low back pain 503398321 M54.5 Edema of l ower extremity 543784979 R60.0 Smoker 20052616 F17.200 Trying to give up smoking 215977794 Z72.0 [id number] MD [place] Navarro [address] [facility] [place] [address] 10/30/2018 16:35:41 10/31/2018 12:34:08 Hypokalemia 31735603 E87.6 Smoker 40955877 F17.200 Trying to give up smoking 157465619 Z72.0 [id number] MD [place] Navarro [address] [facility] [place] [address] 11/21/2019 09:28:28 11/21/2019 16:36:20 Type II dissection of thoracic aorta 896354166 I71.01 Morbid obesity 615541289 E66.01 Smoker 05553291 F17.200 Coronary arteriosclerosis 85248710 I25.10 Screening for malignant neoplasm of colon 903764861 Z12.11 pt has had a colonoscop y within the last ten years, done at [facility] Screening for malignant neoplasm of prostate 458462609 Z12.5 will do a PSA at his next visit here--no hx of prostate CA in his family [id number] MD [place] Navarro [address] [facility] [place] [address] 05/21/2020 08:17:44 05/25/2020 07:28:38 Under care of insurance risk surveyor [id number] Z76.89 just saw specialist in the last week Essential hypertension 86597795 I10 131/69 Morbid obesity 578232240 E66.01 Influenza immunization advised 417882000 Z71.89 [id number] MD [place] Navarro [address] [facility] [place] [address] 11/19/2020 10:22:22 11/20/2020 15:47:45 Essential hypertension 60304237 I10 131/69 Morbid obesity 111219330 E66.01 Smoker 93526720 F17.200 Type II di ssection of thoracic aorta 246932306 I71.01 followed by a thoracic surgeon Change in skin lesion 39 7198459 L98.9 Prediabetes 415825027 R7 3.03 [id number] MD [place] Navarro [address] [facility] [place] [address] 11/22/2021 10:22:06 11/24/2021 15:02:48 Essential hypertension 83256969 I10 Morbid obesity 418075166 E66.01 Screening for malignant neoplasm of colon 928100631 Z12.11 pt has had a colonoscop y within the last ten years, done at [facility] Smoker 24126273 F17.200 Seasonal a llergic rhinitis 808199752 J30.2 Edema of l ower extremity 552280040 R60.0 Dyslipidemia 003984914 E 78.5 Low back pain 371542619 M54.50 Coronary arteriosclerosis 59535014 I25.10 [id number] MD [place] Navarro [address] [facility] [place] [address] 08/16/2022 10:04:17 08/17/2022 16:13:23 Morbid obesity 574108095 E66.01 Essential hypertension 61437333 I10 Smoker 49323354 F17.200 Prediabetes 931786698 R7 3.03 Screening for malignant neoplasm of prostate 669616767 Z12.5 -no hx of prostate CA in his family Screening for malignant neoplasm of colon 085090174 Z12.11 pt has had a colonoscop y within the last ten years, done at [facility] Under care of insurance risk surveyor 436059241 Z76.89 just saw specialist in the last week at [facility] for hx of dissection of thoracoabd ominal aorta [id number] MD [place] Navarro 14 [address] [facility] [place] [address] 12/07/2022 14:34:42 12/12/2022 15:54:43 Prediabetes 701469170 R73.03 Lymphedema of bilateral lower limbs 9612318180 7456160 I89.0 Essential hypertension 22708515 I10 Dyslipidemia 412538305 E 78.5 Vitamin D deficiency 347 81486 E55.9 Edema of l ower extremity 705561048 R60.0 Coronary arteriosclerosis 49603951 I25.10 Screening for malignant neoplasm of colon 940515060 Z12.11 pt has had a colonoscop y within the last ten years, done at [facility] Screening for malignant neoplasm of prostate 130396685 Z12.5 -no hx of prostate CA in his family--la st PSA was on 08-16-22 and WNL [id number] MD [place] Navarro 14 IM [address] [facility] [address] [place] [address] [address] 08/17/2023 16:38:44 08/23/2023 11:37:59 Morbid obesity 589690797 E66.01 Essential hypertension 25300834 I10 Cholelithi asis without obstruction 53151927 K80.20 Screening for malignant neoplasm of prostate 839084686 Z12.5 -no hx of prostate CA in his family--la st PSA was on 08-16-22 and WNL Screening for malignant neoplasm of colon 715500843 Z12.11 pt has had a colonoscop y within the last ten years, done at [facility] Edema of l ower extremity 667671526 R60.0 Trying to give up smoking 041296190 Z72.0 [id number] MD Tracy Navarro 14 IM [address] [facility] [place] [address] 12/12/2023 16:05:50 12/19/2023 09:36:00 HIV screening declined 2144098955 19617 Z53.20 Essential hypertension 78164564 I10 Morbid obesity 664780281 E66.01 Smoker 58076778 F17.200 Dyslipidemia 850051878 E 78.5 Coronary arteriosclerosis 41274442 I25.10 Edema of l ower extremity 878850854 R60.0 Trying to give up smoking 457325206 Z72.0 [id number] MD Tracy Navarro 14 IM [address] [facility] [place] [address] 06/12/2024 09:41:34 06/17/2024 13:15:02 Influenza immunization advised [id number] Z71.89 Pneumonia [id number] J18. 9 Open wound of right lower leg [id number] S81.801A Bilateral lower leg edema [id number] R60.0 Prediabetes [id number] R7 3.03 [id number] MD Tracy Navarro 14 IM [address] [facility] [place] [address] 07/08/2024 11:02:41 07/10/2024 14:36:54 Edema of lower extremity [id number] R60.0 Morbid obesity [id number] E66.01 Health Concerns Section Related Observation LastModified by Organization Detai ls LastModified Time None Recorded Concern Status LastModified by Organization Details LastModified Time None Recorded Advance Directives Directive N: Payers Encounter Date Sequence Insurance Name Policy Number Policy Yan Covered Member ID Yan Member ID Guarantor Name 12/07/2022 1 [facility] [id number] Lexie Walton [id number] Bob Walton 08/17/2023 1 [facility] [id number] Lexie Walton [id number] Bob Walton 12/12/2023 1 [facility] [id number] Lexie Walton [id number] Bob Walton 06/12/2024 1 [facility] [id number] Lexie Walton [id number] Bob Walton 07/08/2024 1 [facility] [id number] Lexie Walton [id number] Bob Anton Notes Date Note Type Note Provider Name and Address Organization Details Recorded Time 12/07/2022 text/html Pt presents for an annual checkup. Tyree Hathaway MD Attn: Accounting, 1 [facility], [place], [address], [place] [facility] 12/12/2022 14:05:01 08/17/2023 text/html Per intake note. Tyree vasquez MD Attn: Accounting,[address] [facility], [place], [address], [place] [facility] 08/21/2023 15:11:05 12/12/2023 text/html Pt presents for a regular checkup; no acute issues. Tyree Hathaway MD Attn: Accounting, 1 [facility], [place], [address], [facility] - [facility] 12/17/2023 12:47:32 06/12/2024 text/html Pt presents with concerns about edema in both LEs. Tyree Hathaway MD Attn: Accounting, 1 [facility], [place], [address], [place] [facility] 06/14/2024 07:41:39 07/08/2024 text/html Pt presents with for followup to injury at right reed. It is healing well--pt is concerned about an indentation in the reed at the point of injury. Tyree Hathaway MD Attn: Accounting, 1 [facility], [place], [address], [place] [facility] 07/09/2024 22:29:25
--- OUTSIDE RECORDS SUMMARY | 2024-10-09 14:07 | XMS_ITS | Encounter Summary ---
Author Organization [facility] Address [address] [place] [address] Phone Care Team Providers Care Menagerie Caretaker Name Role Phone Tyree Hathaway MD Primary Care Provider [phone] Encounter Details Date Type Department Care Team (Late st Contact Info) Description 09/23/2024 Results Follow-Up [facility] Cardiology [address] 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
--- OUTSIDE RECORDS SUMMARY | 2024-10-09 14:07 | XMS_ITS | Referral Summary ---
Author Organization [facility] Address [address] [place] [address] Care Team Providers Care Floor Scrubber Name Role Phone Tyree Hathaway MD Primary Care Provider [phone] Encounters Date Type Department Care Team Description 09/23/2024 Results Follow-Up [facility] Cardiology [address] [place] [address] [facility] 8th [place] [address] [place] [address] Bobby Sampson MD 09/23/2024 11:32 AM CABLE COVERER - 09/23/2024 11:59 PM CABLE COVERER Hospital Encounter [facility] [address] [place] [address] Dissection of thoracoabdominal aorta (HCC) Discharge Disposition: Discharge to home or self care 09/23/2024 2:15 PM CABLE COVERER Office Visit [facility] Cardiology [address] [place] [address] [facility] 8th [place] [address] [place] [address] Bobby Sampson MD Dissection of aorta, unspecified portion of aorta (HCC) (Primary Dx); Primary hypertension; Cigarette smoker from Last 3 Months Allergies No known active allergies Medications atorvastatin (LIPITOR) 40 mg tablet Take 1 tablet (40 mg total) by mouth daily 09/18/2017 Active chlorthalidone 25 mg tablet Take 1 tablet (25 mg total) by mouth daily 09/18/2017 Active cyclobenzaprine (FLEXERIL) 10 mg tablet Take 1 tablet (10 mg total) by mouth as needed 09/04/2017 Active hydrALAZINE (APRESOLINE) 100 mg tabletIndicatio ns:hypertension Take 1 tablet (100 mg total) by mouth 3 (three) times a day 09/07/2017 Active isosorbide dinitrate (ISORDIL) 20 mg tablet Take 1 tablet (20 mg total) by mouth 3 (three) times a day 09/07/2017 Active labetalol (NORMODYNE,MALDONADO DATE) 300 mg tablet TAKE 1 TABLE IN THE MORNING, 2 TABLETS IN THE AFTERNOON, AND 2 TABLETS IN THE EVENING 09/07/2017 Active POTASSIUM CHLORIDE ER 10 mEq CR tablet 1 tablet/capsu le (10 mEq total) 4 (four) times a day 09/04/2017 Active furosemide (LASIX) 20 mg tablet Take 1 tablet (20 mg total) by mouth 2 (two) times a day Active amLODIPine (NORVASC) 10 mg tablet Take 1 tablet (10 mg total) by mouth Every Evening 08/09/2019 Active ergocalciferol (VITAMIN D) 50,000 unit capsule Take 1 capsule (50,000 Units total) by mouth once a week Active varenicline tartrate (CHANTIX) 1 mg tablet Take 1 tablet twice a day by oral route. 08/17/2023 Active Active Problems Problem Noted Date Diagnosed Date Cigarette smoker 09/22/2024 Aortic dissection 10/24/2018 Hypertension 10/24/2018 Social History Tobacco Use Types Packs/Day Years Used Date Smoking Tobacco: Every Day Smokeless Tobacco: Former Tobacco Cessation:Ready to Q uit: Not Asked; Counseling Given: Not Answered Alcohol Use Standard Drinks/Week Comments Yes 0 (1 standard drink = 0.6 oz pur e alcohol) Sex and Gender Information Value Date Recorded Sex Assigned at Not on file Legal Sex Male 11:59 AM CABLE COVERER Gender Identity Not on file Sexual Orientation Not on file Last Filed Vital Signs Vital Sign Reading Time Taken Comments Blood Pressure 134/78 09/23/2024 12:14 PM CABLE COVERER Pulse 59 09/23/2024 12:14 PM CABLE COVERER Temperature 36 C (96.8 F) 06/18/2022 6:41 AM CABLE COVERER Respiratory Rate 20 06/18/2022 6:41 AM CABLE COVERER Oxygen Saturation 94% 09/23/2024 12: 14 PM CABLE COVERER Inhaled Oxygen Concentration - - Weight 189.4 kg (417 lb 9.6 oz) 025 12:14 PM CABLE COVERER Height 193 cm (6' 4 ) 09/23/2024 12:14 PM CABLE COVERER Body Mass Index 50.83 09/23/2024 12:14 PM CABLE COVERER Plan of Treatment Not on file Procedures Procedure Name Priority Date/Time Associated Diagnosis Comments CT CHEST ABDOMEN PELVIS WO CONTRAST Schedule Routine, Read Routine (OP Routine) 09/23/2024 11:44 AM CABLE COVERER Dissection of thoracoabdominal aorta (HCC) from Last 3 Months Results * CT Chest Abdomen Pelvis WO Contrast (09/23/2024 11:44 AM CABLE COVERER) Anatomical Region Laterality Modality Body N/A Computed Tomogra phy 09/23/2024 1:55 PM CABLE COVERER Impressions 09/23/2024 3:19 PM CABLE COVERER 1. Unchanged chronic type B aortic dissection extending from the descending thoracic aorta into the right common iliac artery. The caliber of the thoracoabdominal aorta is similar to the prior examination. 2. Enlarging indeterminate attenuation lesion arising medially from the interpolar region of the left kidney is suspicious for neoplasm. Recommend further evaluation with ultrasound or MRI. 3. Morphologic findings suggestive of hepatic fibrosis with associated mild splenomegaly. Dictated by: Bob Randall MD The radiology attending physician has personally reviewed this study, and had reviewed and/or edited this written report and agrees with it. Electronically signed by: Giovanni Watters M.D. Narrative 09/23/2024 3:19 PM CABLE COVERER EXAMINATION: Computed tomography of the chest, abdomen and pelvis without intravenous contrast HISTORY: Type B aortic dissection TECHNIQUE: Transaxial computed tomographic images of the chest, abdomen and pelvis were obtained without intravenous contrast according to the standard protocol COMPARISON: CT 07/31/2023 FINDINGS: There is a chronic type B aortic dissection extending from the descending thoracic aorta into the right common iliac artery. Aortic measurements: Sinuses of Valsalva: 40 x 40 x 40 mm cusp to commissure Sinotubular junction: 42 x 39 mm Tubular ascending aorta: 41 x 40 mm Aortic arch: 34 x 34 mm Maximum descending thoracic aorta: 45 x 41 mm, previously 44 x 42 mm when remeasured in similar fashion Aorta at the level of the diaphragmatic hiatus: 42 x 39 mm, previously 41 x 38 mm. Maximum infrarenal abdominal aorta: 40 x 35 mm, previously 39 x 34 mm Chest: The heart size is normal. There is no pericardial effusion. There are coronary artery calcifications. No thoracic lymphadenopathy. The main pulmonary artery is mildly enlarged, measuring up to 38 mm similar to prior. There is a small amount of fluid in the esophagus. There is bilateral gynecomastia. The central airways normal in caliber. There is apical predominant paraseptal emphysema. There is no consolidation, pleural effusion, or pneumothorax. There are some tree-in-bud nodules in the right lower lobe which are improved from prior examinations (for example 07/2022) and likely sequela of aspiration. Abdomen/Pelvis: There is mild surface liver surface nodularity with periportal space widening and caudate hypertrophy. The adrenal glands and pancreas are unremarkable. There is mild splenomegaly. There is cholelithiasis. No renal stones or hydronephrosis. There is a left renal cyst. There is a 1.5 cm partially exophytic indeterminate attenuation lesion arising medially form the interpolar region of the left kidney. This previously measured 9 mm in 07/2022. The bladder is unremarkable. The prostate is present. Small and large bowel are normal in caliber without evidence of obstruction. A curvilinear radiodensity in the terminal ileum is unchanged. The appendix is normal. No intraperitoneal free air or free fluid. No suspicious lymphadenopathy in the abdomen or pelvis. No suspicious lytic or blastic lesion. Procedure Note Giovanni Watters MD - 09/23/2024 EXAMINATION: Computed tomography of the chest, abdomen and pelvis without intravenous contrast HISTORY: Type B aortic dissection TECHNIQUE: Transaxial computed tomographic images of the chest, abdomen and pelvis were obtained without intravenous contrast according to the standard protocol COMPARISON: CT 07/31/2023 FINDINGS: There is a chronic type B aortic dissection extending from the descending thoracic aorta into the right common iliac artery. Aortic measurements: Sinuses of Valsalva: 40 x 40 x 40 mm cusp to commissure Sinotubular junction: 42 x 39 mm Tubular ascending aorta: 41 x 40 mm Aortic arch: 34 x 34 mm Maximum descending thoracic aorta: 45 x 41 mm, previously 44 x 42 mm when remeasured in similar fashion Aorta at the level of the diaphragmatic hiatus: 42 x 39 mm, previously 41 x 38 mm. Maximum infrarenal abdominal aorta: 40 x 35 mm, previously 39 x 34 mm Chest: The heart size is normal. There is no pericardial effusion. There are coronary artery calcifications. No thoracic lymphadenopathy. The main pulmonary artery is mildly enlarged, measuring up to 38 mm similar to prior. There is a small amount of fluid in the esophagus. There is bilateral gynecomastia. The central airways normal in caliber. There is apical predominant paraseptal emphysema. There is no consolidation, pleural effusion, or pneumothorax. There are some tree-in-bud nodules in the right lower lobe which are improved from prior examinations (for example 07/2022) and likely sequela of aspiration. Abdomen/Pelvis: There is mild surface liver surface nodularity with periportal space widening and caudate hypertrophy. The adrenal glands and pancreas are unremarkable. There is mild splenomegaly. There is cholelithiasis. No renal stones or hydronephrosis. There is a left renal cyst. There is a 1.5 cm partially exophytic indeterminate attenuation lesion arising medially form the interpolar region of the left kidney. This previously measured 9 mm in 07/2022. The bladder is unremarkable. The prostate is present. Small and large bowel are normal in caliber without evidence of obstruction. A curvilinear radiodensity in the terminal ileum is unchanged. The appendix is normal. No intraperitoneal free air or free fluid. No suspicious lymphadenopathy in the abdomen or pelvis. No suspicious lytic or blastic lesion. IMPRESSION: 1. Unchanged chronic type B aortic dissection extending from the descending thoracic aorta into the right common iliac artery. The caliber of the thoracoabdominal aorta is similar to the prior examination. 2. Enlarging indeterminate attenuation lesion arising medially from the interpolar region of the left kidney is suspicious for neoplasm. Recommend further evaluation with ultrasound or MRI. 3. Morphologic findings suggestive of hepatic fibrosis with associated mild splenomegaly. Dictated by: Bob Randall MD The radiology attending physician has personally reviewed this study, and had reviewed and/or edited this written report and agrees with it. Electronically signed by: Giovanni Wattesr M.D. Bobby Sampson MD IMG CT PROCEDURES Dalia l Result from Last 3 Months Insurance CHOICE PLUS [facility] CHOICE PLUS [facility] CHOICE PLUS Care Teams Floor Scrubber Relationship Specialty Start Date End Date Tyree Hathaway MD PCP - General 09/15/16
--- OUTSIDE RECORDS SUMMARY | 2024-10-09 14:07 | XMS_ITS | Clinical Summary ---
Author Organization [facility] Address [address] [place] [address] Care Team Providers Care Cancer Genetic Counselor Name Role Phone Tyree Hathaway MD Primary Care Provider [phone] Allergies No known active allergies Medications atorvastatin [...] smoker 09/22/2024 Aortic dissection 10/24/2018 Hypertension 10/24/2018 Encounters Date Type Department Care Team Description 09/23/2024 2:15 PM SERVICE CAR DRIVER Office Visit [facility] Cardiology [address] [facility] 8th [place] [address] [place] [address] Bobby Sampson MD Dissection of aorta, unspecified portion of aorta (HCC) (Primary Dx); Primary hypertension; Cigarette smoker 09/23/2024 11:32 AM SERVICE CAR DRIVER - 09/23/2024 11:59 PM SERVICE CAR DRIVER Hospital Encounter [facility]iology [facility] [address] [place] [address] Dissection of thoracoabdominal aorta (HCC) Discharge Disposition: Discharge to home or self care 09/23/2024 Results Follow-Up [facility] Cardiology [facility] 8th [place] [address] [place] [address] Bobby Sampson MD from Last 3 Months Medical History Medical History Date Comments Aortic dissection (HCC) Hypertension Family History Medical History Relation Name Comments Hypertension Father Family history of hypertension - (Added by TW Conv) Hypertension Mother Family history of hypertension - (Added by TW Conv) Relation Name Status Comments Father Mother Social History Tobacco Use Types Packs/Day Years Used Date Smoking Tobacco: Every Day Smokeless Tobacco: Former Tobacco Cessation:Ready to Q uit: Not Asked; Counseling Given: Not Answered Alcohol Use Standard Drinks/Week Comments Yes 0 (1 standard drink = 0.6 oz pur e alcohol) Sex and Gender Information Value Date Recorded Sex Assigned at Not on file Legal Sex Male 11:59 AM SERVICE CAR DRIVER Gender Identity Not on file Sexual Orientation Not on file Obstetrics History Last Filed Vital Signs Vital Sign Reading Time Taken Comments Blood Pressure 134/78 09/23/2024 12:14 PM SERVICE CAR DRIVER Pulse 59 09/23/2024 12:14 PM SERVICE CAR DRIVER Temperature 36 C (96.8 F) 06/18/2022 6:41 AM SERVICE CAR DRIVER Respiratory Rate 20 06/18/2022 6:41 AM SERVICE CAR DRIVER Oxygen Saturation 94% 09/23/2024 12: 14 PM SERVICE CAR DRIVER Inhaled Oxygen Concentration - - Weight 189.4 kg (417 lb 9.6 oz) 025 12:14 PM SERVICE CAR DRIVER Height 193 cm (6' 4 ) 09/23/2024 12:14 PM SERVICE CAR DRIVER Body Mass Index 50.83 09/23/2024 12:14 PM SERVICE CAR DRIVER Plan of Treatment Health Maintenance Due Date Last Done Comments Colon Cancer Screening-Colonoscopy 1969 Depression Screening 1969 Hepatitis C Screening 1969 Prostate Cancer Screening-PSA 1969 DTaP/Tdap/Td Vaccine (1 - Tdap) 1980 Hepatitis B Screening 1987 Regular Well Visit/Exam 18-64 1987 Pneumococcal vaccine <65 (1 of 2 - PCV) 1988 Zoster Vaccine (1 of 2) 2019 Influenza Vaccine (#1) 2024 04/20/2016 Procedures Procedure Name Priority Date/Time Associated Diagnosis Comments CT CHEST ABDOMEN PELVIS WO CONTRAST Schedule Routine, Read Routine (OP Routine) 09/23/2024 11:44 AM SERVICE CAR DRIVER Dissection of thoracoabdominal aorta (HCC) from Last 3 Months Results * CT Chest Abdomen Pelvis WO Contrast (09/23/2024 11:44 AM SERVICE CAR DRIVER) Anatomical Region Laterality Modality Body N/A Computed Tomogra phy 09/23/2024 1:55 PM SERVICE CAR DRIVER Impressions 09/23/2024 3:19 PM SERVICE CAR DRIVER 1. Unchanged chronic type B aortic dissection [...] Giovanni Watters M.D. Narrative 09/23/2024 3:19 PM SERVICE CAR DRIVER EXAMINATION: Computed tomography of the chest, abdomen [...] it. Electronically signed by: Giovanni Watters M.D. Bobby Sampson MD IMG CT PROCEDURES Dalia l Result from Last 3 Months Insurance [facility] CHOICE PLUS [facility] CHOICE PLUS [facility] CHOICE PLUS Care Teams Cancer Genetic Counselor Relationship Specialty Start Date End Date Tyree Hathaway MD PCP - General 09/15/16
== END 2024-10-09 12:44 | disposition home or self-care (01) ==
PROVIDERS: PCP Family Medicine; Visit Provider Family Medicine
DX: N28.9 Disorder of kidney and ureter, unspecified (principal)
CPT/HCPCS: 76775